=== PATIENT | female | born 1975 | race Caucasian/White ===

== ENCOUNTER 2024-02-26 06:09 | Emergency (ER) | payer OTHER ==
[~2024-02-26] VITALS: Ht 152.4 cm; Wt 82.0 kg
[2024-02-26 06:21] VITALS: O2SAT 97
[2024-02-26] MEDS ORDERED: TOPUD PO (07:36)
[2024-02-26 08:53] VITALS: BP 165/99; PULSE 90; RESP 16; TEMP 37.05852; O2SAT 97
== END 2024-02-26 08:54 | disposition home or self-care (01) ==
LOC: ER 06:09
DX: S52.91XA Unspecified fracture of right forearm, initial encounter for closed fracture (principal); I10 Essential (primary) hypertension; V43.62XA Car passenger injured in collision with other type car in traffic accident, initial encounter; Y92.410 Unspecified street and highway as the place of occurrence of the external cause; Y92.89 Other specified places as the place of occurrence of the external cause; Y99.8 Other external cause status
CPT/HCPCS: 29105; 73100; 73551; 99284